=== PATIENT | female | born 2000 | race African-American/Black ===

== ENCOUNTER 2020-02-06 13:54 | Emergency (ER) | payer OTHER ==
[2020-02-06 14:29] VITALS: BP 105/62; PULSE 100; BMI 18.9
[2020-02-06] MEDS ORDERED: AZITHROMYCIN 500 MG TABLET PO ONE (15:26)
[2020-02-06] MEDS ORDERED: AZITHROMYCIN 250 MG TABLET ONE (15:29)
== END 2020-02-06 17:44 | disposition home or self-care (01) ==
LOC: JERFT 13:54
DX: B08.5 Enteroviral vesicular pharyngitis (principal)
CPT/HCPCS: 76830-TC; 87070; 87205; 99284-25